=== PATIENT | female | born 1950 | race Caucasian/White ===

== ENCOUNTER 2016-09-02 05:12 | Day surgery (SDC) | payer MEDICARE ==
[~2016-09-02] VITALS: Ht 161.3 cm; Wt 63.5 kg
[~2016-09-02 05:12] MED LIST: ABILIFY2 MG PO; ALDACTONE100 MG PO; AMBIEN10 MG PO; DICLOFENAC SODI50 MG PO; LIPITOR40 MG PO; MOTRIN800 MG PO; NEURONTIN600 MG PO; NORCO 10/325 TA1 TA1 PO; OXYCODONE HCL10 MG PO; PERCOCET 10/3251 TA1 PO; PROZAC40 MG PO; XANAX1 MG PO; ZANAFLEX4 MG PO; ZETIA10 MG PO
[2016-09-02 06:21] VITALS: BP 128/84; Ht 161.3 cm; Wt 63.5 kg
--- NOTE | 2016-09-02 06:32 | NUR ---
6609 PATIENT VERY SLEEPY DURING INTERVIEW; HAD TO WAKE HER SEVERAL TIMES TO ANSWER QUESTIONS
[2016-09-02 07:11] LABS: MCH 32.7 pg (26.0-34.0); MCHC 32.4 g/dL (31.0-37.0); MCV 100.8 fL (80.0-100.0); MEAN PLATELET VOLUME 8.8 fL (7.4-10.4); RBC 3.67 10x6/uL (4.00-5.40); RDW 12.3 % (11.5-14.5); WBC 7.1 10x3/uL (4.8-10.8)
[2016-09-02 07:26] LABS: ANION GAP 10.3 mmol/L (8-16); CALCIUM 8.4 mg/dL (8.5-10.1); CARBON DIOXIDE 26.2 mmol/L (21.0-32.0); POTASSIUM - SERUM 4.5 mmol/L (3.5-5.1)
[2016-09-02] MEDS ORDERED: PERCOCET 10/3251 TA1 PO (10:01)
--- NOTE | 2016-09-02 11:59 | NUR ---
IV DC WITH CATHER TIP INTACT
--- NOTE | 2016-10-04 17:27 | OP ---
PATIENT NAME: LISA PARNELL MEDICAL RECORD: [id number] :54 LOCATION:D.OPS ADMISSION DATE: SURGEON: CHELSEY ANTONY MD DATE OF OPERATION: 09/02/2016 PREOPERATIVE DIAGNOSIS: Rotator cuff tear of the left shoulder with impingement syndrome. POSTOPERATIVE DIAGNOSES: 1. Rotator cuff tear of the left shoulder with impingement syndrome. 2. Acromioclavicular arthritis. PROCEDURES: 1. Arthroscopic rotator cuff repair of the left shoulder. 2. Arthroscopic distal clavicle excision of the left shoulder. 3. Arthroscopic subacromial decompression, acromioplasty and bursectomy. 4. Biceps tenotomy. SURGEON: Chelsey Antony MD. ANESTHESIA: General. INTRAOPERATIVE COMPLICATIONS: None. SUMMARY OF PATHOLOGIC FINDINGS: As previously thought, the patient's rotator cuff had a tear of the posterior aspect. OPERATIVE SUMMARY IN DETAIL: After obtaining the appropriate preoperative orthopedic surgical consent as well as anesthetic consultation, evaluation and clearance, the patient was brought to the operating room and placed on the operating table in supine position. After general laryngeal mask was administered, the patient was placed in a right lacteral decubitus position. All pressure points were well padded to include down leg peroneal pad as well as axillary roll. The patient was held firmly to the operating table using the vacuum pack suction system. The left upper extremity and shoulder were prepped and draped in a routine sterile fashion. The arm was held in the Arthrex traction boom at 30 degrees of forward flexion, 30 degrees of abduction with 10 pounds of traction laterally. Arthroscopy was established in the glenohumeral joint from a posterior portal. Anterior portal was established in the anterior safe interval. Diagnostic arthroscopy did reveal the above findings. The biceps tendon was nearly completely torn and the cuff tear was posterior to this. For this reason, the biceps tendon was tenotomized. Transrotator cuff portal was created to debride the posterior portions of the rotator cuff and decorticate the infraspinatus tendinous footprint. Having completed this, attention was turned to the subacromial space. The undersurface of the acromion was denuded using the surface tissue ablation system and releasing the coracoacromial ligament. Next, a 5-0 barrel rao was used to perform acromioplasty at the level of the acromioclavicular joint. Then, under direct arthroscopic visualization, through a separate arthroscopic portal, 1 cm of distal clavicle was taken down. Lastly, a #2 FiberTape was placed in an inverted mattress style fashion, anchored it laterally reapproximating the first infraspinatus tendon tear back to its footprint on the greater tuberosity. Having completed this, arthroscopy portals were closed in routine interrupted fashion using 4-0 Prolene. Sterile dressings were applied. The patient was awakened, taken to recovery in stable condition. All final needle and sponge OPERATIVE REPORT [id number] LISA PARNELL counts were correct. TRANSINT:[id number] Voice Confirmation ID: [id number] DOCUMENT ID: [id number] ARPAN BARNES, CHELSEY REYNOLDS at 1727 CC: [id number] DICTATION DATE: 10/04/16 1101 RELATIONS SPECIALIST: 10/04/16 1228 [facility] [place] 09/02/16 [id number] [place] [address]
== END 2016-09-02 12:16 | disposition home or self-care (01) ==
LOC: D.OPS 05:12 → D.PAN 07:30 → D.OPS 09:15 → D.PAN 09:30 → D.OPS 09:35 → D.PAN 10:15 → D.OPS 12:16
PROVIDERS: Anesthesiology
DX: M75.122 Complete rotator cuff tear or rupture of left shoulder, not specified as traumatic (principal); M24.159 Other articular cartilage disorders, unspecified hip; M25.511 Pain in right shoulder; M25.512 Pain in left shoulder; F17.200 Nicotine dependence, unspecified, uncomplicated; J45.909 Unspecified asthma, uncomplicated; G47.30 Sleep apnea, unspecified; Z01.812 Encounter for preprocedural laboratory examination

== ENCOUNTER → 2016-12-08 17:32 | Outpatient (CLI) | payer MEDICARE ==
[2016-09-02 06:21] VITALS: BMI 24.4
[~2016-12-08 17:32] MED LIST changes: -DICLOFENAC SODI50 MG PO; +METFORMIN HCL500 M1 PO; +VOLTAREN75 MG PO
== END | disposition home or self-care (01) ==
LOC: D.LABREF 17:32
DX: M87.9 Osteonecrosis, unspecified (principal); Z11.8 Encounter for screening for other infectious and parasitic diseases

== ENCOUNTER 2016-12-27 05:23 | Inpatient (IN) | payer MEDICARE ==
[2016-12-23 12:21] LABS: INR 1.19 (0.85-1.17)
[2016-12-23 12:26] LABS: BASOPHILS 0.3 % (0-2); EOSINOPHILS 2.1 % (0-7); HEMOGLOBIN 13.1 g/dL (12-16); LYMPHOCYTES 16.4 % (15-50); MCH 31.9 pg (26.0-34.0); MCV 99.8 fL (80.0-100.0); MEAN PLATELET VOLUME 9.2 fL (7.4-10.4); MONOCYTES 5.9 % (2-11); NEUTROPHILS 75.3 % (40-80); RBC 4.11 10x6/uL (4.00-5.40); RDW 13.7 % (11.5-14.5); WBC 7.8 10x3/uL (4.8-10.8)
[2016-12-23 12:28] LABS: PLATELET COUNT 237 10x3/uL (130-400)
[2016-12-23 12:30] LABS: ANION GAP 10.5 mmol/L (8-16); CALCIUM 9.2 mg/dL (8.5-10.1); CARBON DIOXIDE 29.2 mmol/L (21.0-32.0); CREATININE - SERUM 1.1 mg/dL (0.6-1.3); POTASSIUM - SERUM 5.7 mmol/L (3.5-5.1)
[2016-12-23 12:39] LABS: APPEARANCE CLEAR (CLEAR); BILIRUBIN NEGATIVE (NEGATIVE); COLOR YELLOW (YELLOW); GLUCOSE NEGATIVE (NEGATIVE); KETONE NEGATIVE (NEGATIVE); NITRITE NEGATIVE (NEGATIVE); PROTEIN NEGATIVE (NEGATIVE); SPECIFIC GRAVITY 1.015 (1.005-1.020); UROBILINOGEN NORMAL (NORMAL)
[2016-12-23 13:26] LABS: APTT 29.1 SECONDS (22.8-39.4)
[2016-12-27 06:29] VITALS: BP 112/71; BMI 24.8
--- NOTE | 2016-12-27 10:30 | NUR ---
REC'D TO ROOM 2208 FROM RECOVERY ACCOMPANIED BY OR STAFF VIA STRETCHER. AROUSED TO VOICE NO C/O NOTED OR VOICED. HAS INTERSCALE PUMP IN USE. FAMILY AT BED. VITAL SIGNS STABLE AT THIS TIME. WILL CONTINUE TO OBSERVE FOR NEEDS. C/L IN REACH AT BEDSIDE.
[2016-12-27 10:31] VITALS: BP 119/79
[2016-12-27 13:25] VITALS: BP 118/79
--- NOTE | 2016-12-27 13:59 | NUR ---
PT IS FULLY AWAKE AT THIS TIME. NO DISTRESS NOTED. CAN EXPRESS NEEDS AND WANTS SLING INTACT TO LEFT SHOULDER. FAMILY AT BEDSIDE. C/L IN REACH AT BEDSIDE.
--- NOTE | 2016-12-27 15:49 | OP ---
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 PROCEDURE: Left total shoulder arthroplasty. SURGEON: Chelsey Antony MD ANESTHESIA: General. INTRAOPERATIVE COMPLICATIONS: None. 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 Rotator cuff appeared to be in overall good condition. IMPLANTS USED: Arthrex total shoulder arthroplasty system, size medium glenoid 50 x 19 humeral head on a size 6 stem press fit. OPERATIVE SUMMARY IN DETAIL: After obtaining the appropriate preoperative orthopedic surgery consent as well as anesthetic consultation, evaluation and clearance, the patient was brought to the operating room and placed on operating table in supine position. After adequate general laryngeal mask airway was administered, the patient was placed in the beach chair position. All pressure points were well padded. She was held firmly to the operating table using the vacuum pack suction system. The patient's left upper extremity and shoulder were then prepped and draped in routine sterile fashion. The arm was held in the Trimano arm holding device. Deltopectoral incision was made, taken down to the level of clavipectoral fascia. The deltoid was retracted laterally with a brown retractor and the conjoined tendon was gently retracted medially. Subscapularis was taken down and retracted as well and the humeral head was then dislocated into the incision. Proximal humeral head cut was made using the humeral head cutting guide. Serial and sequential reaming and broaching were done. This was followed by placing the cut protector cover roll for the broach and the glenoid was approached. Circumferential labrectomy was then followed by center positioning and Nautilus reaming over the central pin. Having completed this, the final glenoid preparations were followed by copious irrigation. A size medium vault lock glenoid from Arthrex was tamped into place. All excess cement was removed and this was held in place while the cement was allowed to harden. Attention was then returned to the proximal humerus. A trial was undertaken with the above-mentioned final components. It was felt to be stable in all planes. The stem was put into place and the inferior screw was followed by superior screw tightening and the 51 x 19 was placed in the appropriate place using offset to cover the superior lateral bone. Having completed this, the shoulder was relocated. Transosseous repair of the subscapularis as well as [id number] repair was done with #2 Ethibond. This was then followed by copious irrigation, closure of the deltopectoral incision with #1 Vicryl, 2-0 Vicryl and skin delbert. Sterile dressings were applied. The patient was OPERATIVE REPORT [id number] LISA PARNELL awakened, taken to recovery in stable condition. All final needle and sponge counts were correct. TRANSINT:[id number] Voice Confirmation ID: [id number] DOCUMENT ID: [id number] ARPAN BARNES, CHELSEY REYNOLDS at 1549 CC: [id number] DICTATION DATE: 12/27/16 1227 AUTO ENGINE MECHANIC: 12/27/16 1352 ADM IN [place] [id number] [place] [id number]
[2016-12-27 16:00] VITALS: BP 113/59
--- NOTE | 2016-12-27 20:31 | NUR ---
REC'D. TALKING ON PHONE.IN BED SITTING POSITION.DRSG. DRY AND INTACT LEFT SHOULDER.(BLOCK) DENIES PAIN AT PRESENT TIME.FINGERS PINK/WARM/BLANCHES WELL/GOOD RADIAL PULSE/ICE IN PLACE WILL CONTINUE TO MONITOR FOR ANY NEUROVASCULAR STATUS AND FOLLOW CURRENT PLAN OF CARE.
[2016-12-28] VITALS: BP 126/75
[2016-12-28 04:00] VITALS: BP 128/77
[2016-12-28 06:26] LABS: HEMATOCRIT 34.5 % (36.0-48.0); HEMOGLOBIN 11.2 g/dL (12-16); MCH 31.8 pg (26.0-34.0); MCHC 32.5 g/dL (31.0-37.0); MEAN PLATELET VOLUME 9.6 fL (7.4-10.4); RBC 3.52 10x6/uL (4.00-5.40); RDW 13.2 % (11.5-14.5); WBC 12.4 10x3/uL (4.8-10.8)
--- NOTE | 2016-12-28 07:30 | NUR ---
RECIEVED PT DURING WALKING ROUNDS. PT RESTING IN BED WITH NO COMPLAINTS OF PAIN OR DISCOMFORT AT THIS TIME. ASSESSMENT DONE PER FLOWSHEET. BED IN LOW POSITION AND CALL LIGHT WITHIN REACH. WILL CONTINUE TO MONITOR.
[2016-12-28 08:25] VITALS: BP 128/80
[2016-12-28 11:53] VITALS: BP 111/61
[2016-12-28 15:45] VITALS: BP 100/56
[2016-12-28 20:00] VITALS: BP 101/46
[2016-12-29] VITALS: BP 104/50
[2016-12-29 05:10] LABS: HEMATOCRIT 34.3 % (36.0-48.0); HEMOGLOBIN 11.1 g/dL (12-16); MCHC 32.4 g/dL (31.0-37.0); MCV 98.8 fL (80.0-100.0); MEAN PLATELET VOLUME 9.3 fL (7.4-10.4); RBC 3.47 10x6/uL (4.00-5.40); RDW 13.6 % (11.5-14.5)
[2016-12-29] MEDS ORDERED: PERCOCET 10/3251 TA1 PO (07:42)
--- NOTE | 2016-12-29 08:00 | NUR ---
RECIEVED PT FROM LONG LINES OPERATOR NURSE. PT RESTING IN BED WITH NO COMPLAINTS OF PAIN OR DISCOMFORT AT THIS TIME. ASSESSMENT DONE PER FLOWSHEET. BED IN LOW POSITION AND CALL LIGHT WITHIN REACH. WILL CONTINUE TO MONITOR.
[2016-12-29 08:37] VITALS: BP 100/63
--- NOTE | 2016-12-29 10:19 | NUR ---
Patient Name: LISA PARNELL Admission Status: Elective Accout number: [id number] Admission Date: 12-27-2016 : 1950 Admission Diagnosis:PRIMARY OSTEOARTHRITIS, LEFT SHOULDER Attending: CHELSEY ANTONY Current LOS: 2 Anticipated DC Date: 12-29-2016 Planned Disposition: Home Primary Insurance: MEDICARE A & B Discharge Planning Comments: CM MET WITH PATIENT REGARDING D/C NEEDS AND PLANS. PATIENT STATED SHE LIVES ALONE AND HER DAUGHTER (KAN) WILL DRIVE HER HOME TODAY AT DISCHARGE. PATIENT IS INDEPENDENT WITH HER CARE AND HAS NO DME AT HOME. PATIENT HAS 1 STEP TO ENTER HER HOME AND 1 FLIGHT OF STAIRS IN HER HOME (DOES NOT USE). PATIENTS PCP IS DR. CUNNINGHAM AND PHARMACY IS [facility] ON [facility]. PATIENT REF. HOME HEALTH. CM WILL CONTINUE TO FOLLOW PATIENT WITH D/C NEEDS AND PLANS. PCP DR. OCTAVIO ASHRAF ON [facility] [phone] KAN (DAUGHTER) [phone] Financial Investment Adviser: Cindy John Is the patient Alert and Oriented? Yes 0 * How many steps to enter\exit or inside your home? 1 0 * PCP DR. CUNNINGHAM 0 * Pharmacy [facility] 0 * Preadmission Environment Home Alone 0 * ADLs Independent 0 * Equipment None 0 * List name and contact numbers for known caregivers / representatives who currently or will assist patient after discharge: KAN (DAUGHTER) [phone] 0 * Community resources currently utilized None 0 * Additional services required to return to the preadmission environment? Yes 0 * Can the patient safely return to the preadmission environment? Yes 0 * Has this patient been hospitalized within the prior 30 days at any hospital? No 0 Grand Total: 0
--- NOTE | 2016-12-29 10:49 | NUR ---
CM REASSESSMENT NOTE: PATIENT IS DISCHARGING HOME TODAY/REF. HH/NO OTHER NEEDS/DAUGHTER DRIVING HER.
--- NOTE | 2016-12-29 13:38 | NUR ---
IV REMOVED AND PT GIVEN DISCHARGE INSTRUCTIONS, PT DISCHAGRGED VIA WHEELCHAIR TO HOME WITH A FAMILY MEMBER.
== END 2016-12-29 13:39 | disposition home or self-care (01) | DRG 483 ==
LOC: D.SDCHOLD 05:23 → D.MS 05:23 → D.SDCHOLD 07:30 → D.MS 10:04
PROVIDERS: ADMIT Orthopaedic Surgery
PROC: 0RRK0JZ Replacement of Left Shoulder Joint with Synthetic Substitute, Open Approach (ICD-10-PCS; principal; 2016-12-27 07:30)
DX: M19.012 Primary osteoarthritis, left shoulder (principal); M90.5 Osteonecrosis in diseases classified elsewhere

== ENCOUNTER → 2017-03-14 14:41 | Outpatient (CLI) | payer MEDICARE ==
[2017-03-14 15:22] LABS: BASOPHILS 0.1 % (0-2); EOSINOPHILS 1.5 % (0-7); HEMATOCRIT 38.8 % (36.0-48.0); HEMOGLOBIN 12.8 g/dL (12-16); IMMATURE GRANULOCYTES 0.1 % (0-5); LYMPHOCYTES 19.6 % (15-50); MCH 32.2 pg (26.0-34.0); MCV 97.5 fL (80.0-100.0); MEAN PLATELET VOLUME 8.8 fL (7.4-10.4); MONOCYTES 8.2 % (2-11); NEUTROPHILS 70.5 % (40-80); PLATELET COUNT 225 10x3/uL (130-400); RBC 3.98 10x6/uL (4.00-5.40); RDW 12.9 % (11.5-14.5); WBC 8.9 10x3/uL (4.8-10.8)
[2017-03-14 16:42] LABS: ERYTHROCYTE SEDIMENTATION RATE 18 mm/hr (0-30)
== END | disposition home or self-care (01) ==
LOC: D.LAB 14:41
PROVIDERS: Orthopaedic Surgery
DX: M25.512 Pain in left shoulder (principal)

== ENCOUNTER → 2017-03-21 08:06 | Outpatient (CLI) | payer MEDICARE | END | disposition home or self-care (01) | LOC: D.NM 08:06 | DX: M25.512 Pain in left shoulder (principal); M25.552 Pain in left hip; M25.551 Pain in right hip ==

== ENCOUNTER → 2017-03-25 15:54 | Outpatient (CLI) | payer MEDICARE | END | disposition home or self-care (01) | LOC: D.MRI 15:30 | DX: M54.5 Low back pain (principal) ==

== ENCOUNTER → 2018-07-10 11:22 | Outpatient (CLI) | payer MEDICARE | END | disposition home or self-care (01) | LOC: D.HCCARDIO 11:22 | PROVIDERS: ATTEND Internal Medicine Cardiovascular Disease | DX: R07.9 Chest pain, unspecified (principal) ==

== ENCOUNTER 2018-07-26 09:08 | Outpatient (CLI) | payer MEDICARE | END 2018-07-26 13:10 | disposition home or self-care (01) | LOC: D.CATH 09:08 | DX: I25.119 Atherosclerotic heart disease of native coronary artery with unspecified angina pectoris (principal); R94.30 Abnormal result of cardiovascular function study, unspecified ==

== ENCOUNTER 2020-08-22 11:20 | Day surgery (SDC) | payer MEDICARE, MEDICAID ==
[~2020-08-22] VITALS: Ht 165.1 cm; Wt 60.8 kg
[~2020-08-22 11:20] MED LIST changes: +BUPROPION XL300 MG PO; +LIPITOR20 MG PO; -LIPITOR40 MG PO; +ROPINIROLE HCL2 MG PO; +ZOLOFT100 MG PO; +ZOLOFT50 MG PO
[2020-08-22 12:00] LABS: BASOPHILS 0.4 % (0-2); EOSINOPHILS 1.7 % (0-7); HEMATOCRIT 36.6 % (36.0-48.0); HEMOGLOBIN 11.8 g/dL (12-16); LYMPHOCYTES 24.7 % (15-50); MCHC 32.3 g/dL (31.0-37.0); MCV 86.5 fL (80.0-100.0); MEAN PLATELET VOLUME 7.5 fL (7.4-10.4); MONOCYTES 7.5 % (2-11); NEUTROPHILS 65.7 % (40-80); RBC 4.24 10x6/uL (4.00-5.40); RDW 17.8 % (11.5-14.5); WBC 6.4 10x3/uL (4.8-10.8)
[2020-08-22 12:07] LABS: ANION GAP 12.4 mmol/L (8-16); CALCIUM 9.3 mg/dL (8.5-10.1); CARBON DIOXIDE 28.2 mmol/L (21.0-32.0); CREATININE - SERUM 1.2 mg/dL (0.6-1.3); PLATELET COUNT 226 10x3/uL (130-400); POTASSIUM - SERUM 4.6 mmol/L (3.5-5.1)
[2020-08-22 13:50] VITALS: BP 109/73; Ht 165.1 cm; Wt 60.8 kg
--- NOTE | 2020-08-22 18:16 | NUR ---
PT STATES PAIN HS IMPROVED TO 4/10 AFTER NORCO. DISCHARGE INSTRUCTIONS GIVEN AND PT VERBALIZED AN UNDERSTANDING. IV D/C'D WITH CANNULA INTACT, PRESSURE HELD AND DRSG PLACED. DR. LORA HAS BEEN AT BEDSIDE TO ANSWER QUESTIONS
--- NOTE | 2020-08-25 07:13 | OP ---
PATIENT NAME: LISA PARNELL MEDICAL RECORD: [id number] :54 LOCATION:D.[facility] ADMISSION DATE: SURGEON: JOSEMANUEL LORA MD DATE OF OPERATION: 08/22/2020 PREOPERATIVE DIAGNOSIS: Symptomatic left inguinal hernia. POSTOPERATIVE DIAGNOSIS: Symptomatic non-incarcerated left femoral inguinal hernia. PROCEDURE: Open repair of left non-incarcerated femoral inguinal hernia with bilayered preperitoneal polypropylene mesh. SURGEON: Josemanuel Lora MD DIRECTOR OF STRATEGIC PARTNERSHIPS: None. BLOOD LOSS: Minimal. ANESTHESIA: General. COMPLICATIONS: None. I saw and examined the patient preoperatively in the presence of a nurse. The risks, possible complications, and alternatives of the procedure were explained to the patient. She elects to proceed. The discussion specifically included, but was not limited to, bleeding requiring emergency reoperation, infection, intestinal injury. DESCRIPTION OF PROCEDURE: The patient was conveyed to the operating room electively on 08/22/2020. General anesthesia was induced by the anesthesia staff. The abdomen, pelvis and genitals were sterilely prepped and draped. Transverse incision was accomplished in the left lower quadrant. Sharp dissection was carried down through skin and subcutaneous tissue as well as the Chivo's fascia. The external oblique aponeurosis was then incised along the direction of its fibers. I bluntly dissected down through the internal oblique and transversus abdominis muscles. A preperitoneal pocket was fashioned bluntly. There was no direct component. No indirect component. The round ligament was ligated doubly and divided between ligatures. A femoral hernia sac was reduced in its entirety. I then injected Solu-Medrol into the periosteum of the pubic bone just medial to the femoral hernia defect. The patient had point tenderness at the site. Although I identified no sensory nerve structures, I told the patient that if I did I would divide them to provide for an area of numbness rather than pain at the site. The patient was agreeable to this. I cut 2 ovals of a polypropylene mesh. The 2 ovals were sutured together one on top of the other with a running #1 Surgidac. The mesh was placed in the preperitoneal space. Once I was satisfied with placement of the mesh, I allowed the internal oblique and transverse abdominis muscles to come together. These were sutured together with multiple interrupted horizontal mattress 0 Surgidacs. I incorporated a portion of the mesh with these sutures. At no time was there any apparent nerve injury. The external oblique aponeurosis was closed along the direction of its fibers. Chivo's fascia was approximated with interrupted 3-0 Vicryl. The subdermis was approximated with interrupted 3-0 Vicryl. The OPERATIVE REPORT [id number] LISA PARNELL skin was approximated with a running intracuticular 3-0 Vicryl. Benzoin and Steri-Strips were applied. The patient was then extubated and conveyed to post-anesthesia care unit where she was in stable condition. She is going to be dismissed home on a narcotic analgesic as well as a stool softener. TRANSINT:[id number] Voice Confirmation ID: [id number] DOCUMENT ID: [id number] JOSEMANUEL LORA MD at 0713 CC: [id number] DICTATION DATE: 08/23/20 1325 PAYROLL ASSISTANT: 08/23/20 1606 [facility] 08/22/20 [address] [id number] [place] [address]
== END 2020-08-22 18:10 | disposition home or self-care (01) ==
LOC: D.OPS 11:20
PROVIDERS: Anesthesiology; ATTEND Surgery
DX: K40.90 Unilateral inguinal hernia, without obstruction or gangrene, not specified as recurrent (principal); M19.90 Unspecified osteoarthritis, unspecified site; F41.9 Anxiety disorder, unspecified